=== PATIENT | female | born 1990 | race Caucasian/White ===

== ENCOUNTER 2021-05-31 19:36 | Emergency (ER) | payer OTHER, MEDICAID, SELFPAY ==
--- NOTE | ~2021-05-31 | XR_ITS ---
EXAMINATION: PORTABLE CHEST 1 VIEW CLINICAL INFORMATION: Upper respiratory symptoms.. COMPARISON: 10/17/2012. TECHNIQUE: Portable frontal view of the chest was obtained. FINDINGS: The lungs are well expanded. No focal infiltrate, effusion, edema, or pneumothorax. Cardiac and mediastinal silhouettes are within normal limits for technique. No acute bony abnormality seen. XR/XR chest 1V IMPRESSION: No evidence of acute disease.
[2021-05-31 20:51] VITALS: BP 140/85; PULSE 85; RESP 18; TEMP 36.4; O2SAT 100; BMI 35.6
--- NOTE | 2021-05-31 22:25 | ED.GENADULT ---
HPI - General Adult General Chief complaint: General Medical Stated complaint: flu like Time Seen by Provider: 05/31/21 22:25 Source: patient Mode of arrival: ambulatory Limitations: no limitations History of Present Illness HPI narrative: Patient's vaccinated COVID-19 1st dose on 05/13 complaining of nasal congestion dry cough sore throat for last 2 3 days patient does have history of asthma denies any shortness of breath had low-grade temperature at home no other family member sick Related Data Previous Rx's Medication Instructions Recorded amoxicillin 875 mg tablet 875 mg PO BID #20 tab 05/31/21 prednisone 20 mg tablet 40 mg PO DAILY #10 tab 05/31/21 Allergies Allergy/AdvReac Type Severity Reaction Status Date / Time No Known Allergies Allergy Verified 05/31/21 20:53 Review of Systems Review of Systems: Yes all other systems are reviewed and are negative PMFSH Past Medical History Medical History Asthma Social History Social History Advance Directives: No Patient : No Physical Exam Vital Signs: Vital Signs: Last Vital Signs Temp 97.6 F 05/31/21 20:51 Pulse 80 05/31/21 22:29 Resp 8 L 05/31/21 22:29 BP 153/81 H 05/31/21 22:29 Pulse Ox 100 05/31/21 22:29 Body Mass Index 35.6 Const: General: no acute distress and well developed Orientation/consciousness: patient oriented x3 HENMT: Head: Yes normocephalic General nose exam: Normal external nose present and Normal nares present Mouth: Normal oral and palatal mucosa present Throat: Yes posterior oropharynx normal Neck: Neck: Yes full ROM Resp: Effort & Inspection: normal respiratory effort Auscultation: clear to auscultation bilaterally Neuro: General: patient oriented x3 Medical Decision Making Lab Data Lab results reviewed: Yes I reviewed the patient's lab results. Labs: Lab Results 05/31/21 Range/Units 21:41 Coronavirus (PCR) NEGATIVE (Negative) Influenza Type A (PCR) NEGATIVE (Negative) Influenza Type B (PCR) NEGATIVE (Negative) RSV RNA Qual (PCR) NEGATIVE (Negative) Discharge Plan Discharge Clinical Impression: URI with cough and congestion Patient Disposition: Home, Self-Care Instructions: Upper Respiratory Infection (ED) Additional Instructions: Take medication as advised Follow with PCP Prescriptions: New prednisone 20 mg tablet 40 mg PO DAILY Qty: 10 RF: 0 amoxicillin 875 mg tablet 875 mg PO BID Qty: 20 RF: 0
[2021-05-31 22:29] VITALS: BP 153/81; PULSE 80; RESP 8; O2SAT 100
[2021-05-31 22:48] LABS: Influenza A PCR NEGATIVE (Negative); Influenza B PCR NEGATIVE (Negative); Resp Syncy Virus RNA Qual PCR NEGATIVE (Negative); SARS COV2 PCR INHOUSE NEGATIVE (Negative)
[2021-05-31] MEDS: predniSONE 20 MG TABLET 40 MG PO (23:32)
== END 2021-06-01 00:23 | disposition home or self-care (01) ==
PROVIDERS: Emergency Provider Internal Medicine
DX: J06.9 Acute upper respiratory infection, unspecified (principal); Z20.822 Contact with and (suspected) exposure to COVID-19; R05 Cough; R09.81 Nasal congestion
CPT/HCPCS: 0241U; 36415; 71045; 87651; 99283

== ENCOUNTER 2021-08-28 23:32 | Emergency (ER) | payer OTHER, MEDICAID, SELFPAY ==
[2021-08-28 23:47] VITALS: BP 112/68; PULSE 85; RESP 16; TEMP 36.8; O2SAT 97; BMI 35.6
--- NOTE | 2021-08-28 23:58 | ED_ITS ---
HPI - URI/Sore Throat General Chief Complaint: Upper Respiratory Symptoms Stated Complaint: Covid symptoms Time Seen by Provider: 08/28/21 23:33 Source: patient Mode of arrival: ambulatory Limitations: no limitations History of Present Illness HPI Narrative: Patient comes to emergency room complaining of coughing, couple episodes of diarrhea, runny nose, headache. Patient states that she has been using her albuterol pump more than usual and she is almost out. Patient denies fever or chills. Related Data Previous Rx's Medication Instructions Recorded amoxicillin 875 mg tablet 875 mg PO BID #20 tab 05/31/21 prednisone 20 mg tablet 40 mg PO DAILY #10 tab 05/31/21 albuterol sulfate 90 mcg/actuation 2 puff INHALATION Q4-6H PRN #8.5 g 08/29/21 aerosol inhaler prednisone 50 mg tablet 50 mg PO DAILY #4 tab 08/29/21 Allergies Allergy/AdvReac Type Severity Reaction Status Date / Time No Known Allergies Allergy Verified 05/31/21 20:53 Review of Systems Review of Systems: Constitutional : No Weight loss, No Fever, No Chills, No Night Sweats, No Fatigue, complaining of generalized malaise ENT/Mouth : No Hearing loss, No Ear Pain, complaining of Nasal Congestion, No Sinus Pain, No Hoarseness, No sore throat, complaining of Rhinorrhea, No Swallowing Difficulty Eyes: No Eye Pain, No Swelling, No Redness, No Foreign Body, No Discharge, No Vision Changes Cardiovascular : No Chest Pain, No SOB, No Dyspnea on Exertion, No Orthopnea, No Edema, No Palpitations Respiratory : Complaining of cough, wheezing, No Smoke Exposure, No Dyspnea Gastrointestinal : No Nausea, No Vomiting, No Diarrhea, No Constipation, No abdominal Pain, No Hematochezia, No Melena Genitourinary : no irregular bleeding, No Dysuria, No Urinary Frequency, No Hematuria, No Urinary Incontinence, No Urgency, No Flank Pain, No Urinary Flow Changes, No Hesitancy Musculoskeletal : No joint pain, No Myalgias, No Joint Swelling Skin : No Skin Lesions, No rash Neuro : No Weakness, No Numbness, No Paresthesias, No Loss of Consciousness, No Dizziness, No Headache Psych : No Anxiety/Panic, No Depression, No SI/HI/AH/VH, No Social Issues, Heme/Lymph: No Bruising, No Bleeding,No Lymphadenopathy Endocrine : No Polyuria, No Polydipsia, No Temperature Intolerance [facility] Past Medical History Medical History Asthma Social History Social History Patient Tobacco Use Status: Never used Tobacco Use of substances other than those prescribed or required for medical reasons: No Advance Directives: No Advance Directives Information Provided: No Patient : No Physical Exam Vital Signs: Vital Signs: Last Vital Signs Temp 98.3 F 08/28/21 23:47 Pulse 85 08/28/21 23:47 Resp 16 08/28/21 23:47 BP 112/68 08/28/21 23:47 Pulse Ox 97 08/28/21 23:47 BMI result Body Mass Index 35.6 Const: Other: Appearance: Alert. Oriented X3. No acute distress. Eyes: Pupils equal, round and reactive to light. ENT: Pharynx normal. Neck: Normal inspection. Neck supple. No lymph nodes noted. No crepitus CVS: Normal heart rate and rhythm. Pulses normal. Normal S1 and S2 Respiratory: No respiratory distress. Breath sounds normal. No Wheezing. No rales Abdomen: Soft and nontender. No rigidity. No distention. good BS x4 Skin: Skin warm and dry. Normal skin color. Normal skin turgor. Extremities: No lower extremity edema. No Lacerations. No Rash Neuro: Oriented X 3. No motor deficit. No sensory deficit. Moving all extermities. No slurred speech. Course Course Course Narrative: Patient tested negative for COVID-19. Patient likely having a viral syndrome MDM - URI/Sore Throat Lab Data Labs: Lab Results 08/28/21 Range/Units 23:56 COVID-19 ([facility]) Negative (Negative) COVID-19 Clin Com See Note Discharge Plan Discharge Clinical Impression: Upper respiratory infection, Acute viral syndrome Patient Disposition: Home, Self-Care Instructions: Upper Respiratory Infection (ED) Additional Instructions: Please follow-up with your primary care physician tomorrow. If you have any worsening or new symptoms, please return to the emergency room or call 911 Prescriptions: New prednisone 50 mg tablet 50 mg PO DAILY Qty: 4 RF: 0 albuterol sulfate 90 mcg/actuation HFA aerosol inhaler 2 puff inhalation Q4-6H PRN (Reason: shortness of breath or wheezing) Qty: 8.5 RF: 1 No Action prednisone 20 mg tablet 40 mg PO DAILY Qty: 10 RF: 0 amoxicillin 875 mg tablet 875 mg PO BID Qty: 20 RF: 0 Stand Alone Forms: Work/School Release
[2021-08-29] MEDS: predniSONE 20 MG TABLET 60 MG PO (00:07)
[2021-08-29 00:43] LABS: COVID-19 Test Negative (Negative)
== END 2021-08-29 00:56 | disposition home or self-care (01) ==
LOC: HO.ED 08-29 00:18
PROVIDERS: Emergency Medicine; Emergency Provider Emergency Medicine
DX: B34.9 Viral infection, unspecified (principal); J06.9 Acute upper respiratory infection, unspecified; J45.909 Unspecified asthma, uncomplicated; Z20.822 Contact with and (suspected) exposure to COVID-19
CPT/HCPCS: 36415; 87635; 99283; 99284

== ENCOUNTER 2021-10-08 08:36 | Emergency (ER) | payer OTHER, MEDICAID, SELFPAY ==
[2021-10-08 08:48] VITALS: BP 139/81; PULSE 115; RESP 19; TEMP 36.6; O2SAT 98; BMI 35.6
[2021-10-08 09:52] LABS: Strep A Nucleic Acid Negative (Negative)
[2021-10-08 09:56] LABS: COVID-19 Test Negative (Negative); IDNOW Serial# 9DD0AD1C
--- NOTE | 2021-10-08 11:12 | ED_ITS ---
HPI - URI/Sore Throat General Chief Complaint: Upper Respiratory Symptoms Stated Complaint: vomiting diarrhea sore throat Time Seen by Provider: 10/08/21 10:49 Source: patient Mode of arrival: ambulatory Limitations: no limitations History of Present Illness HPI Narrative: 30-year-old female presents to ED for sore throat, body aches, diarrhea, and chills. Patient states she was exposed to her nephew who was posi tive for COVID. Patient states she is vaccinated with 2 dose of Phizer. Patient denies any chest pain or shortness of breath. Patient denies any abdominal pain. Related Data Previous Rx's Medication Instructions Recorded amoxicillin 875 mg tablet 875 mg PO BID #20 tab 05/31/21 prednisone 20 mg tablet 40 mg PO DAILY #10 tab 05/31/21 albuterol sulfate 90 mcg/actuation 2 puff INHALATION Q4-6H PRN #8.5 g 08/29/21 aerosol inhaler prednisone 50 mg tablet 50 mg PO DAILY #4 tab 08/29/21 Allergies Allergy/AdvReac Type Severity Reaction Status Date / Time No Known Allergies Allergy Verified 09/24/21 11:31 ? albuterol pump Allergy Unknown Uncoded 09/24/21 11:31 ? Cats Allergy Unknown Uncoded 09/24/21 11:31 Review of Systems Review of Systems: Only symptoms are diarrhea, body aches, chills, sore throat, headache Yes all other systems are reviewed and are negative PMFSH Past Medical History Medical History Asthma Social History Social History (System 09/24/21 @ 11:31 by Vicki Olivares) Patient Tobacco Use Status: Never used Tobacco Advance Directives: No Advance Directives Information Provided: No Physical Exam Vital Signs: Vital Signs: Last Vital Signs Temp 98 F 10/08/21 08:48 Pulse 115 H 10/08/21 08:48 Resp 19 10/08/21 08:48 BP 139/81 10/08/21 08:48 Pulse Ox 98 10/08/21 08:48 BMI result Body Mass Index 35.6 Const: General: cooperative, healthy appearing, comfortable, no acute distress, well developed, alert, awake and Physically active Orientation/consciousness: patient oriented x3 HENMT: Head: Yes normal to inspection, Yes No palpable skull fracture present, Yes normocephalic and Yes atraumatic Ears: hearing grossly normal bilateral ly, external ears normal, TM's normal bilaterally, EAC's normal, mastoids normal and no periauricular adenopathy General nose exam: Normal external nose present and Normal nares present Face and sinus: Yes normal facial exam Eyes: General: appearance normal, both eyes and all related structures Neck: Neck: Yes normal visual inspection, Yes full ROM, Yes no lymphadenopathy, Yes no meningeal signs, Yes trachea midline, Yes supple, No an terior neck swelling and No tender Chest: Chest palpation & inspection: normal inspection of the chest and normal palpation of entire chest wall Resp: Effort & Inspection: normal respiratory effort and able to speak in complete sentences Auscultation: clear to auscultation bilaterally Cardio: Jugular venous distension: no JVD Heart sounds: S1 normal heart sound present and S2 normal heart sound present GI: Inspection: Yes normal to inspection and No abdominal wall ecchymosis Palpation (GI): Soft to palpation, not firm, nontender, no guarding and not rigid : General: No CVA tenderness and Yes no CVA tenderness Back/Spine/Pelvis: Back: no CVA tenderness, No CVA tenderness and No back tenderness Skin: General skin exam: no rashes or lesions noted and elasticity normal Neuro: General: patient oriented x3, gait normal, no meningeal signs and CN's II-XI intact bilaterally Cranial nerves: Yes CN's II-XII intact bilaterally Extrem: General: Yes normal to inspection, Yes full ROM and Yes capillary refill normal Psych: Appearance: grossly normal, well kempt and not disheveled Course Course Course Narrative: Patient tested for COVID Reevaluation(s) Reevaluation #1: COVID test negative. Patient informed this may be a false negative. patient educated on signs of respiratory distress Time: 11:21 MDM - URI/Sore Throat MDM Narrative Medical decision making narrative: Viral syndrome Lab Data Labs: Lab Results 10/08/21 10/08/21 Range/Units 09:26 09:26 COVID-19 ([facility]) Negative (Negative) COVID-19 Clin Com See Note S. pyogenes GrpA YON Negative (Negative) Discharge Plan Discharge Clinical Impression: Acute viral syndrome Patient Disposition: Home, Self-Care Instructions: Viral Syndrome (ED) Additional Instructions: Your COVID test came back negative. This may be false negative. Recommend retesting in 5 days. Return to the ED for any chest pain, shortness of breath, weakness, dizziness, or any other concerning symptoms. Prescriptions: No Action prednisone 20 mg tablet 40 mg PO DAILY Qty: 10 RF: 0 amoxicillin 875 mg tablet 875 mg PO BID Qty: 20 RF: 0 prednisone 50 mg tablet 50 mg PO DAILY Qty: 4 RF: 0 albuterol sulfate 90 mcg/actuation HFA aerosol inhaler 2 puff inhalation Q4-6H PRN (Reason: shortness of breath or wheezing) Qty: 8.5 RF: 1 Stand Alone Forms: Work/School Release Interventions: ED Discharge Assessment Last Done: 10/08/21 11:39 Discharge Date/Time: 10/08/21 11:40 Print Language: Turkish
== END 2021-10-08 11:40 | disposition home or self-care (01) ==
PROVIDERS: Emergency Provider Emergency Medicine; PCP Internal Medicine
DX: B34.9 Viral infection, unspecified (principal); Z20.822 Contact with and (suspected) exposure to COVID-19; J02.9 Acute pharyngitis, unspecified; J45.909 Unspecified asthma, uncomplicated; Z79.899 Other long term (current) drug therapy
CPT/HCPCS: 87635; 87651; 99283

== ENCOUNTER 2022-01-20 11:41 | Emergency (ER) | payer OTHER, MEDICAID, SELFPAY ==
--- NOTE | ~2022-01-20 | XR_ITS ---
EXAMINATION: XR CHEST CLINICAL INFORMATION: Chest pain COMPARISON: Previous chest x-ray most recent May 2021 TECHNIQUE: 2 views of the chest were obtained. FINDINGS: No significant abnormality is noted involving the heart, lungs, mediastinum, bony thorax or soft tissues. XR/XR chest 2V IMPRESSION: Unremarkable examination.
--- NOTE | 2022-01-20 11:44 | ECG_ITS ---
Test Reason : cp Blood Pressure : / mmHG Vent. Rate : 100 BPM Atrial Rate : 100 BPM P-R Int : 130 ms QRS Dur : 086 ms QT Int : 340 ms P-R-T Axes : 044 -11 015 degrees QTc Int : 438 ms Normal sinus rhythm Normal ECG No previous ECGs available Referred By: Generic ED Physician Electronically Signed By:IVÁN GRANDE
[2022-01-20 11:46] VITALS: BP 131/82; PULSE 94; RESP 16; TEMP 36.9; O2SAT 97; BMI 37.1
--- NOTE | 2022-01-20 12:25 | ED.CHESTPAIN ---
HPI - Chest Pain General Chief Complaint: Chest Pain Stated Complaint: chest pain x4days Time Seen by Provider: 01/20/22 11:56 Source: patient Mode of arrival: ambulatory Limitations: no limitations History of Present Illness HPI narrative: 31-year-old female presents emergency department complaining of chest pain. Patient states she has been having recurrent pains for the past 4 days she states associated with any foods or drinking. She denies any shortness of breath though she states she has been having some asthma but his fine right now. She states that when she takes a very deep breath sometimes being also feel epigastric pain. She denies as burning sensation she did take Tums without relief. She has not tried anything else she denies any history of acid reflux is any history of heart disease or at early age. MD complaint: chest pain Pertinent past history: asthma Related Data Previous Rx's Medication Instructions Recorded amoxicillin 875 mg tablet 875 mg PO BID #20 tab 05/31/21 prednisone 20 mg tablet 40 mg PO DAILY #10 tab 05/31/21 albuterol sulfate 90 mcg/actuation 2 puff INHALATION Q4-6H PRN #8.5 g 08/29/21 aerosol inhaler prednisone 50 mg tablet 50 mg PO DAILY #4 tab 08/29/21 famotidine 20 mg tablet (Pepcid) 20 mg PO BID PRN #60 tab 01/20/22 Allergies Allergy/AdvReac Type Severity Reaction Status Date / Time naproxen Allergy Hives Verified 01/20/22 11:46 ? Cats Allergy Unknown Hives Uncoded 01/20/22 11:45 Review of Systems Review of Systems: Review of systems: General: Patient denies any fever chills recent illness or falls Musculoskeletal: Denies back pain or body aches or other injuries HEENT: denies headache, runny nose, ear pain Respiratory: denies shortness of breath, cough Cardiovascular: no chest pain or palpitations : denies dysuria, frequency Abdomen: no nausea vomiting denies abdominal pain Extremities: no swelling, no pain Skin: no diaphoresis Yes all other systems are reviewed and are negative [facility] Past Medical History Medical History Asthma Social History Social History (System 09/24/21 @ 11:31 by Vicki Olivares) Alcohol intake: never Patient Tobacco Use Status: Never used Tobacco Use of substances other than those prescribed or required for medical reasons: No Advance Directives: No Advance Directives Information Provided: No Physical Exam Vital Signs: Vital Signs: Last Vital Signs Temp 97.9 F 01/20/22 13:25 Pulse 86 01/20/22 13:25 Resp 16 01/20/22 13:25 BP 131/70 01/20/22 13:25 Pulse Ox 99 01/20/22 13:25 BMI result Body Mass Index 37.1 General: Well-appearing well-nourished in no signs of distress HEENT: Normocephalic atraumatic Neck: No signs of JVD, no masses no tenderness or lymphadenopathy Cardiovascular: Regular rate and rhythm Respiratory: Clear to auscultation bilaterally Abdomen: Soft nontender no masses rectal exam performed guiac negative quality control technician confirmed. Extremities: Normal pedal pulses no signs of edema Skin: Dry warm no rashes Back: No tenderness full ROM MDM - Chest Pain MDM Narrative Medical decision making narrative: Patient with pain for 4 days sounds more like acid reflux than coronary does not sound like she has a pneumonia that could be a component of asthma making her even more anxious. She has no signs of difficulty breathing no other concerns I will give the patient Maalox Pepcid and get a cardiac workup including LFTs and lipase. 1400 x-ray and labs including LFTs and troponin are all negative patient well patient sleeping in the room I explained all the lab results send Pepcid to her pharmacy and have patient follow-up with the primary care doctor. Medical Records Data Attestation: I reviewed the patient's medical records. Lab Data Attestation: I reviewed the patient's lab results. Result diagrams: 01/20/22 12:54 01/20/22 12:54 Labs: Lab Results 01/20/22 01/20/22 01/20/22 Range/Units 12:54 12:54 12:54 WBC 10.0 (4.8-10.8) X10*3/uL RBC 4.28 (4.20-5.50) X10*6/uL Hgb 12.8 (12.0-16.0) g/dl Hct 39.7 (37.0-47.0) % MCV 92.8 (80.0-98.0) fL MCH 29.9 (27.0-33.0) pg MCHC 32.2 (31.0-35.0) g/dl RDW 12.3 (11.0-16.0) % Plt Count 340 (160-400) X10*3/uL MPV 9.4 (9.4-12.3) fL Immature Gran % (Auto) 0.4 (0.0-0.4) % Neut % (Auto) 56.2 (45-73) % Lymph % (Auto) 27.8 (20-40) % Hughes % (Auto) 7.6 (2-11) % Eos % (Auto) 7.3 H (0-4) % Baso % (Auto) 0.7 (0-2) % Lymph # (Auto) 2.8 (1.2-4.9) X10*3/uL Hughes # (Auto) 0.8 (0.1-1.2) X10*3/uL Eos # (Auto) 0.7 H (0.0-0.4) X10*3/uL Baso # (Auto) 0.1 (0.0-0.2) X10*3/uL Abs Immat Gran (auto) 0.04 H (0.00-0.03) X10*3/uL Absolute Neuts (auto) 5.6 (2.0-8.3) x10*3/uL Absolute Nucleated RBC 0.000 (0.0-0.012) X10*3/uL Nucleated RBC % (auto) 0.0 (0.0-0.2) /100WBC Sodium 139 (135-145) mmol/L Potassium 4.3 (3.3-5.1) mmol/L Chloride 106 (96-108) mmol/L Carbon Dioxide 28 (22-29) mmol/L Anion Gap 9 L (12-20) BUN 13 (9-16) mg/dL Creatinine 0.73 (0.5-1.4) mg/dL Estim Creat Clear Calc 136.3 Estimated GFR > 60 Random Glucose 93 (60-115) mg/dL Calcium 9.1 (8.4-10.2) mg/dL Total Bilirubin 0.3 (0.0-1.0) mg/dL Direct Bilirubin 0.2 (0.0-0.5) mg/dL AST 15 (5-31) U/L ALT 15 (0-31) U/L Alkaline Phosphatase 50 (39-117) U/L Troponin I High Sens < 3.5 (<3.5-17.0) ng/L Total Protein 6.9 (6.5-8.0) g/dL Albumin 3.7 (3.5-5.0) g/dL Lipase 41 (8-78) U/L Scores Heart Score History: -0- slightly suspicious ECG: -0- normal Age: -0- < or = 45 Risk factory: -0- no risk factors known Troponin: -0- < or = normal limit Score: 0 Risk: 1.7% Discharge Plan Discharge Clinical Impression: Chest pain Patient Disposition: Home, Self-Care Instructions: Chest Pain (DC) Additional Instructions: All your labs and please call from the doctor he can try Pepcid or Maalox for pain. Prescriptions: New famotidine [Pepcid] 20 mg tablet 20 mg PO BID PRN (Reason: acid reflux) Qty: 60 0RF No Action prednisone 20 mg tablet 40 mg PO DAILY Qty: 10 0RF amoxicillin 875 mg tablet 875 mg PO BID Qty: 20 0RF prednisone 50 mg tablet 50 mg PO DAILY Qty: 4 0RF albuterol sulfate 90 mcg/actuation HFA aerosol inhaler 2 puff inhalation Q4-6H PRN (Reason: shortness of breath or wheezing) Qty: 8.5 1RF Referrals: Po,Ash Morse MD [Physician] - (Please call to follow up and establish)
[2022-01-20 12:42] VITALS: PULSE 93
[2022-01-20] MEDS: Famotidine 20 MG TABLET PO (12:48)
[2022-01-20] MEDS: Magnesium Hydrox/Alum Hydrox 30 ML ORAL.SUSP PO (12:48)
[2022-01-20 12:59] LABS: MANUAL DIFF FLAG NO
[2022-01-20 13:05] LABS: Basophils Absolute Auto 0.1 X10*3/uL (0.0-0.2); Basophils Percent Auto 0.7 % (0-2); Eosinophils Absolute Auto 0.7 X10*3/uL (0.0-0.4); Eosinophils Percent Auto 7.3 % (0-4); Hematocrit 39.7 % (37.0-47.0); Hemoglobin 12.8 g/dl (12.0-16.0); Imm Gran Abs Auto 0.04 X10*3/uL (0.00-0.03); Imm Gran Pct Auto 0.4 % (0.0-0.4); Lymphocytes Absolute Auto 2.8 X10*3/uL (1.2-4.9); Lymphocytes Percent Auto 27.8 % (20-40); Mean Corpuscular HGB Conc 32.2 g/dl (31.0-35.0); Mean Corpuscular Hemoglobin 29.9 pg (27.0-33.0); Mean Corpuscular Volume 92.8 fL (80.0-98.0); Mean Platelet Volume 9.4 fL (9.4-12.3); Monocytes Absolute Auto 0.8 X10*3/uL (0.1-1.2); Monocytes Percent Auto 7.6 % (2-11); Neutrophils Absolute Auto 5.6 x10*3/uL (2.0-8.3); Neutrophils Percent Auto 56.2 % (45-73); Platelet Count 340 X10*3/uL (160-400); Red Blood Count 4.28 X10*6/uL (4.20-5.50); Red Cell Distribution Width 12.3 % (11.0-16.0)
[2022-01-20 13:23] LABS: Alanine Aminotransferase 15 U/L (0-31); Albumin Level 3.7 g/dL (3.5-5.0); Alkaline Phosphatase 50 U/L (39-117); Anion Gap 9 (12-20); Aspartate Amino Transferase 15 U/L (5-31); Bilirubin Direct 0.2 mg/dL (0.0-0.5); Bilirubin Total 0.3 mg/dL (0.0-1.0); Blood Urea Nitrogen 13 mg/dL (9-16); Calcium 9.1 mg/dL (8.4-10.2); Carbon Dioxide 28 mmol/L (22-29); Chloride 106 mmol/L (96-108); Creatinine Clr Calc Pharmacy 136.3; Estimated Glomerular Filt Rate > 60; Glucose Random 93 mg/dL (60-115); Lipase 41 U/L (8-78); Potassium 4.3 mmol/L (3.3-5.1); Sodium 139 mmol/L (135-145); Total Protein 6.9 g/dL (6.5-8.0)
[2022-01-20 13:25] VITALS: BP 131/70; PULSE 86; RESP 16; TEMP 36.6; O2SAT 99
[2022-01-20 13:26] LABS: Troponin-I High Sensitivity < 3.5 ng/L (<3.5-17.0)
[2022-01-20 14:05] VITALS: BP 129/84; PULSE 90; RESP 20; TEMP 36.6; O2SAT 99
== END 2022-01-20 14:15 | disposition home or self-care (01) ==
PROVIDERS: Emergency Provider Student in an Organized Health Care Education/Training Program
DX: R07.9 Chest pain, unspecified (principal); J45.909 Unspecified asthma, uncomplicated
CPT/HCPCS: 36415; 71046; 80048; 80076; 83690; 84484; 85025; 93005; 99283; 99284

== ENCOUNTER 2022-09-29 02:18 | Emergency (ER) | payer OTHER, MEDICAID, SELFPAY ==
--- NOTE | ~2022-09-29 | XR_ITS ---
EXAMINATION: XR CHEST CLINICAL INFORMATION: Shortness of breath COMPARISON: 01/20/2022 TECHNIQUE: 2 views of the chest were obtained. FINDINGS: No significant abnormality is noted involving the heart, lungs, mediastinum, bony thorax or soft tissues. XR/XR chest 2V IMPRESSION: Unremarkable examination.
[2022-09-29 02:49] VITALS: BP 140/86; PULSE 85; RESP 20; TEMP 36.7; O2SAT 98; BMI 37.4
[2022-09-29 03:39] LABS: Influenza A PCR NEGATIVE (Negative); Influenza B PCR NEGATIVE (Negative); Resp Syncy Virus RNA Qual PCR NEGATIVE (Negative); SARS COV2 PCR INHOUSE NEGATIVE (Negative)
[2022-09-29] MEDS: Albuterol Sulfate 2.5 MG, Albuterol Sulfate (0.083%) 2.5 MG 5 MG INHALE (03:44)
[2022-09-29] MEDS: Albuterol/Iprat 2.5/0.5MG 3 ML AMPUL.NEB INHALE (03:49)
--- NOTE | 2022-09-29 04:03 | ED.SOB ---
HPI - SOB/Dyspnea General Chief Complaint: Dyspnea Stated Complaint: respiratory issues Time Seen by Provider: 09/29/22 03:23 Source: patient Mode of arrival: ambulatory Limitations: no limitations History of Present Illness HPI Narrative: 31-year-old female came in for evaluation of shortness of breath and increased wheezing with worsening of her asthma, patient used her inhaler and nebulizer at home with no relief of her symptoms, declined any fever or chills. Patient has been coughing and complaining of left shoulder pain. Never been intubated or require ICU admission in the past. Related Data Previous Rx's Medication Instructions Recorded amoxicillin 875 mg tablet 875 mg PO BID #20 tabs 05/31/21 prednisone 20 mg tablet 40 mg PO DAILY #10 tabs 05/31/21 albuterol sulfate 90 mcg/actuation 2 puff inhalation Q4-6H PRN 08/29/21 aerosol inhaler shortness of breath or wheezing #8.5 grams prednisone 50 mg tablet 50 mg PO DAILY #4 tabs 08/29/21 famotidine 20 mg tablet (Pepcid) 20 mg PO BID PRN acid reflux #60 01/20/22 tabs albuterol sulfate 2.5 mg/3 mL 2.5 mg (3 mL) inhalation Q4-6H PRN 09/29/22 (0.083 %) solution for nebulization shortness of breath or wheezing #90 mL albuterol sulfate 90 mcg/actuation 1 inh inhalation QID PRN shortness 09/29/22 aerosol inhaler of breath or wheezing #8.5 grams prednisone 20 mg tablet 20 mg PO BID #10 tabs 09/29/22 Allergies Allergy/AdvReac Type Severity Reaction Status Date / Time naproxen Allergy Hives Verified 01/20/22 11:46 ? Cats Allergy Unknown Hives Uncoded 01/20/22 11:45 Review of Systems Review of Systems: All other systems are reviewed and are negative Constitutional: Reports as per HPI and Reports no additional constitutional complaints Eyes: Reports as per HPI and Reports no additional eye complaints Reports system reviewed and no additional complaints, except as documented Cardiovascular: Reports as per HPI and Reports no additional cardiovascular complaints Respiratory: Reports as per HPI and Reports no additional respiratory complaints Gastrointestinal: Reports as per HPI and Reports no additional gastrointestinal complaints Genitourinary: Reports no additional female genitourinary complaints Musculoskeletal: Reports no additional musculoskeletal complaints Skin/Breast: Reports system reviewed and no additional complaints, except as docu Psychiatric: Reports no additional psychiatric complaints Endocrine: Reports no additional endocrine complaints Hematologic/Lymphatic: Reports no additional hematologic/lymphatic complaints Allergic/Immunologic: Reports no additional allergic/immunologic complaints Reports system reviewed and no additional complaints, except as documented and Reports Abnormal speech present [facility] Past Medical History Medical History Asthma Social History Social History Alcohol intake: never Patient Tobacco Use Status: Never used Tobacco Advance Directives: No Physical Exam Vital Signs: Vital Signs: Last Vital Signs Temp 98.0 F 09/29/22 02:49 Pulse 92 09/29/22 04:42 Resp 20 09/29/22 04:42 BP 115/60 09/29/22 04:42 Pulse Ox 98 09/29/22 04:42 O2 Del Method 09/29/22 04:42 BMI result Body Mass Index 37.4 Vital signs have been reviewed as appeared to be correct. Blood pressure normal. Heart rate normal. Respiration rate normal. Temperature normal. Oxygen saturation normal. Appearance: Alert. Oriented X3. No acute distress. Head: Normal external exam. Normocephalic. Atraumatic. No Mohr signs noted. No raccoon eyes noted Eyes: PERRLA. EOMI. Conjunctiva and sclera normal. Eyelids normal. ENT: TM's Normal. Pharynx normal. Uvula midline. Moist mucous membranes. No trismus noted. No drooling noted. No muffled voice noted. Neck: Normal inspection. Neck supple. FROM. No adenopathy. Thyroid Normal. No meningeal signs. No neck mass noted. CVS: Normal heart rate and rhythm. Heart sound normal. No murmurs noted. Pulses normal throughout. Respiratory: No respiratory distress. Painless inspiration. Breath sounds normal. Diffuse expiratory wheezing with prolonged expiration.. Chest nontender. No accessory muscle usage noted or decreased air movement noted. Abdomen: Soft and nontender. Bowel sounds normal in all 4 quadrants. No distention noted. No organomegaly noted. No visible injury noted. Back: No CVA tenderness. Full range of motion noted. Skin: Skin warm and dry. Normal skin color. Normal skin turgor. No rashes/lesions/lacerations noted. Extremities: No lower extremity edema. Extremities exhibit normal range of motion. Extremities nontender. Neuro: Oriented X 3. Cranial nerve exam: II-XII are grossly intact No motor deficit. No sensory deficit. Reflexes normal. Course Course Course Narrative: 31-year-old female history of asthma came in for acute asthma exacerbation, patient was given prednisone p.o. in the emergency department patient feels better after getting bronchodilator. Will discharge the patient on prednisone and albuterol. Medications Administered Discontinued Medications Generic Name Dose Route Start Last Admin Trade Name Freq PRN Reason Stop Dose Admin Albuterol Sulfate 2.5 mg/ 5 mg 09/29/22 03:23 09/29/22 03:44 Albuterol Sulfate 2.5 mg INHALE 09/29/22 03:24 5 mg ONCE ONE Administration Albuterol/Ipratropium 3 ml 09/29/22 03:23 09/29/22 03:49 Albuterol/Iprat 2.5/0.5mg 3 Ml Ampul.Neb INHALE 09/29/22 03:24 3 ml ONCE ONE Administration Prednisone 40 mg 09/29/22 04:02 09/29/22 04:40 Prednisone 20 Mg Tablet PO 09/29/22 04:03 40 mg ONCE ONE Administration Medical Decision Making Differential Diagnosis Differential Diagnoses: The differential diagnosis associated with the presentation includes (Influenza a, COVID-19 infection, RSV, pneumonia, asthma exacerbation.) Lab Data MDM Lab Attestation statement: I reviewed the patient's lab results. Labs: Lab Results 09/29/22 Range/Units 02:56 Influenza Type A (PCR) NEGATIVE (Negative) Influenza Type B (PCR) NEGATIVE (Negative) RSV RNA Qual (PCR) NEGATIVE (Negative) SARS-CoV-2 RNA (RT-PCR) NEGATIVE (Negative) Independent Interpretation I performed an independent interpretation of an: Plain X-Ray (Unremarkable examination.) Radiology Impression Discussion of test interpretation with radiology: I have reviewed the radiologist's reading. Discharge Plan Discharge Clinical Impression: Asthma with exacerbation Patient Disposition: Home, Self-Care Instructions: Asthma (ED) Prescriptions: New prednisone 20 mg tablet 20 mg PO BID Qty: 10 0RF albuterol sulfate 2.5 mg /3 mL (0.083 %) solution for nebulization 2.5 mg inhalation Q4-6H PRN (Reason: shortness of breath or wheezing) Qty: 90 0RF albuterol sulfate 90 mcg/actuation HFA aerosol inhaler 1 inh inhalation QID PRN (Reason: shortness of breath or wheezing) Qty: 8.5 0RF No Action prednisone 20 mg tablet 40 mg PO DAILY Qty: 10 0RF amoxicillin 875 mg tablet 875 mg PO BID Qty: 20 0RF famotidine [Pepcid] 20 mg tablet 20 mg PO BID PRN (Reason: acid reflux) Qty: 60 0RF prednisone 50 mg tablet 50 mg PO DAILY Qty: 4 0RF albuterol sulfate 90 mcg/actuation HFA aerosol inhaler 2 puff inhalation Q4-6H PRN (Reason: shortness of breath or wheezing) Qty: 8.5 1RF Referrals: Physician,Unknown J [Primary Care Provider] - Stand Alone Forms: Work/School Release
[2022-09-29] MEDS: predniSONE 20 MG TABLET 40 MG PO (04:40)
[2022-09-29 04:42] VITALS: BP 115/60; PULSE 92; RESP 20; O2SAT 98
== END 2022-09-29 05:54 | disposition home or self-care (01) ==
PROVIDERS: Emergency Provider Emergency Medicine
DX: J45.901 Unspecified asthma with (acute) exacerbation (principal); Z20.828 Contact with and (suspected) exposure to other viral communicable diseases
CPT/HCPCS: 0241U; 71046; 99282; 99284

== ENCOUNTER 2023-03-23 14:40 | Inpatient (IN) | payer OTHER, MEDICAID, SELFPAY ==
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
--- NOTE | 2023-03-23 14:45 | ECG_ITS ---
Test Reason : ingestion of pills Blood Pressure : / mmHG Vent. Rate : 081 BPM Atrial Rate : 081 BPM P-R Int : 122 ms QRS Dur : 098 ms QT Int : 342 ms P-R-T Axes : -01 -12 009 degrees QTc Int : 397 ms Normal sinus rhythm Normal ECG When compared with ECG of 20-JAN-2022 11:42, No significant change was found Referred By: Joanna Prasad Electronically Signed By:Shailesh Edouard
[2023-03-23 14:46] VITALS: BP 156/104; PULSE 91; RESP 19; TEMP 36.6; O2SAT 98; BMI 32.3
[2023-03-23 14:54] VITALS: BP 153/86; PULSE 84; RESP 20; TEMP 36.7; O2SAT 98
[2023-03-23 15:23] LABS: MANUAL DIFF FLAG NO
[2023-03-23 15:26] LABS: Appearance Urine Clear; Basophils Absolute Auto 0.1 X10*3/uL (0.0-0.2); Basophils Percent Auto 0.7 % (0-2); Color Urine Yellow; Eosinophils Absolute Auto 0.2 X10*3/uL (0.0-0.4); Eosinophils Percent Auto 2.1 % (0-4); Glucose Urine UA Negative (Negative); Hematocrit 42.8 % (37.0-47.0); Hemoglobin 14.2 g/dl (12.0-16.0); Imm Gran Abs Auto 0.03 X10*3/uL (0.00-0.03); Imm Gran Pct Auto 0.4 % (0.0-0.4); Leukocyte Esterase Urine Negative (Negative); Lymphocytes Absolute Auto 2.7 X10*3/uL (1.2-4.9); Mean Corpuscular HGB Conc 33.2 g/dl (31.0-35.0); Mean Corpuscular Hemoglobin 30.5 pg (27.0-33.0); Mean Corpuscular Volume 91.8 fL (80.0-98.0); Mean Platelet Volume 9.4 fL (9.4-12.3); Monocytes Absolute Auto 0.5 X10*3/uL (0.1-1.2); Monocytes Percent Auto 5.6 % (2-11); Neutrophils Absolute Auto 5.2 x10*3/uL (2.0-8.3); Neutrophils Percent Auto 60.2 % (45-73); Nitrite Urine Negative (Negative); PH 5.5 (5.0-9.0); Platelet Count 324 X10*3/uL (160-400); Red Blood Count 4.66 X10*6/uL (4.20-5.50); Red Cell Distribution Width 12.8 % (11.0-16.0); Specific Gravity - Urine >= 1.030 (1.005-1.025); Urine Blood Negative (Negative); Urine Ketones Negative (Negative); Urine Protein Trace mg/dL (Neg-Trace); White Blood Count 8.6 X10*3/uL (4.8-10.8)
[2023-03-23 15:41] LABS: Amphetamine Screen Urine Not Detected (Not Detect); Barbiturates, Urine Not Detected (Not Detect); Benzodiazepines Screen Urine Not Detected (Not Detect); Cannabinoid Screen Urine Not Detected (Not Detect); Cocaine Screen Urine Not Detected (Not Detect); Fentanyl, urine Not Detected (Not Detect); Opiate Screen Urine Not Detected (Not Detect); Phencyclidine Screen Urine Not Detected (Not Detect)
[2023-03-23] MEDS: Activated charcoaL 50 GM/240 ML ORAL.SUSP PO (15:45)
[2023-03-23 15:51] LABS: Alanine Aminotransferase 22 U/L (0-31); Alkaline Phosphatase 47 U/L (39-117); Anion Gap 10 (12-20); Aspartate Amino Transferase 16 U/L (5-31); Bilirubin Total 0.6 mg/dL (0.0-1.0); Blood Urea Nitrogen 10 mg/dL (9-16); Calcium 9.6 mg/dL (8.4-10.2); Carbon Dioxide 23 mmol/L (22-29); Chloride 110 mmol/L (96-108); Creatinine Clr Calc Pharmacy 132.8; Estimated Glomerular Filt Rate > 60; Glucose Random 117 mg/dL (60-115); Potassium 3.9 mmol/L (3.3-5.1); Sodium 139 mmol/L (135-145); Total Protein 7.4 g/dL (6.5-8.0)
[2023-03-23 15:52] LABS: IDNOW Serial# 08D9AD1C
[2023-03-23 15:53] LABS: COVID-19 Test Negative (Negative)
[2023-03-23 15:57] LABS: HCG Quantitative < 2 mIU/mL
[2023-03-23 16:02] LABS: Acetaminophen LAB < 17 mcg/mL (<30); Salicylate < 5.0 mg/dL (15-30)
[2023-03-23] MEDS: ondansetron HCL 4 MG/2 ML VIAL IVPUSH (16:12)
[2023-03-23] MEDS: 0.9 % Sodium Chloride 1,000 ML 999 ML IVCONT (16:12)
--- NOTE | 2023-03-23 16:24 | PC.NURSE ---
poison control called per [place] at poison control- repeat tylenol level/labs and repeat ekg in 4 hours, if all is wnl pt can be cleared by 2029 to consult with psych.
--- NOTE | 2023-03-23 16:28 | PC.NURSE ---
pt alert and oriented, EKG showing NSR, VSS, pt c/O SI, 1:1 sitter @ bedside, IV inserted in right AC, NS running, zofran administer for nausea per provider order, charcoal drink provided to patient drinking small sips - encouraging pt to drink, provider aware, will continue to monitor.
[2023-03-23 16:49] LABS: Lipase 24 U/L (8-78)
[2023-03-23 17:40] VITALS: BP 107/52; PULSE 80; RESP 18; TEMP 37.2; O2SAT 99
[2023-03-23 17:55] VITALS: BP 142/66; PULSE 77; RESP 14; TEMP 37.1; O2SAT 98
--- NOTE | 2023-03-23 17:56 | PC.NURSE ---
pt's vitals reassessed, within normal limits besides slighty high systolic BP, pupils within normal limits, encouraged pt to drink charcoal, 1:1 sitter bedside, sitter states that when pt ambulated to bathroom she had an unsteady gait, will continue to monitor and encourage to ingest charcoal.
--- NOTE | 2023-03-23 18:55 | PC.NURSE ---
patient a&ox3, pt continues to be si, pt having repeat labs drawn per request of provider, ivf have completed, patient continues to be coached to drink the charcoal, pt continues to have 1:1 sitter, pupils perrla, skin pink/cool/dry,pts pulse wnl, mucous membranes moist, will continue to monitor.
[2023-03-23 19:09] LABS: Hematocrit 43.2 % (37.0-47.0); Hemoglobin 14.5 g/dl (12.0-16.0); Mean Corpuscular HGB Conc 33.6 g/dl (31.0-35.0); Mean Corpuscular Hemoglobin 30.9 pg (27.0-33.0); Mean Corpuscular Volume 91.9 fL (80.0-98.0); Mean Platelet Volume 9.3 fL (9.4-12.3); Platelet Count 334 X10*3/uL (160-400); Red Cell Distribution Width 12.6 % (11.0-16.0); White Blood Count 9.9 X10*3/uL (4.8-10.8)
--- NOTE | 2023-03-23 19:15 | MHC.EDTECH ---
EKG WAS DONE PRIOR TO MY ARRIVAL ANSWERING SERVICE AGENT EKG WAS NOT DOCUMENTED
[2023-03-23 19:33] LABS: Alanine Aminotransferase 23 U/L (0-31); Alkaline Phosphatase 49 U/L (39-117); Anion Gap 12 (12-20); Aspartate Amino Transferase 15 U/L (5-31); Bilirubin Total 0.5 mg/dL (0.0-1.0); Blood Urea Nitrogen 8 mg/dL (9-16); Calcium 9.3 mg/dL (8.4-10.2); Carbon Dioxide 23 mmol/L (22-29); Chloride 110 mmol/L (96-108); Creatinine Clr Calc Pharmacy 117.5; Estimated Glomerular Filt Rate > 60; Glucose Random 111 mg/dL (60-115); Magnesium 2.1 mg/dL (1.6-2.6); Potassium 4.4 mmol/L (3.3-5.1); Sodium 141 mmol/L (135-145); Total Protein 7.8 g/dL (6.5-8.0)
[2023-03-23 19:34] LABS: Acetaminophen LAB < 17 mcg/mL (<30)
--- NOTE | 2023-03-23 20:41 | PC.NURSE ---
This RN contacting Poison Control @ [facility] request. Per Poison Control, pt is medically cleared. Per MD Maurer, pt is medically cleared and able to return to the pod. [facility] contacted for report, plan to transfer into the pod.
[2023-03-23 23:18] LABS: Prothrombin Time 11.3 SEC (10.0-13.1)
[2023-03-23 23:25] LABS: Ethanol < 10 mg/dL
[2023-03-24 06:17] VITALS: BP 123/69; PULSE 56; RESP 17; TEMP 36.8; O2SAT 98
--- NOTE | 2023-03-24 06:59 | PC.NURSE ---
Patient slept through the night, no distress observed/reported, care consult ordered/pending evaluation, behavior not concerning at this time, patient is currently not on any medication, VSS, labs completed/resulted, will continue to monitor.
[2023-03-24 11:09] VITALS: BP 133/84; PULSE 79; RESP 19; TEMP 36.7; O2SAT 99
--- NOTE | 2023-03-24 14:25 | PC.NURSE ---
Patient calm and cooperative with staff this shift, patient has been resting on bed majority of shift today, getting up to use bathroom independently. Patient had a visitor today that seemed to uplift her.
[2023-03-24 15:30] VITALS: BP 121/79; PULSE 100; RESP 18; TEMP 36.6; O2SAT 98
[2023-03-24] MEDS: hydrOXYzine HCL 25 MG TABLET PO (16:02)
[2023-03-24 16:28] VITALS: BMI 34.4
--- NOTE | 2023-03-24 20:06 | PC.ADMIT ---
Basilio was admitted to [facility] at 1515 from [facility] emergency department on a conditional voluntary for treatment of Unspecified Depressive Disorder.?Precipitant of admission include after she presented to the ER and reporting she attempted suicide via overdose, taking an unknown amount of cyclobenzaprine and acetaminophen. She appears calm and pleasant, reports endorsing depression and anxiety, when asked if she had any thoughts of wanting to hurt self stated No, verbalized to look for staff if thoughts occur. Some irritability when informed about the visitor policy. Basilio is on standard unit checks.
[2023-03-24 20:20] VITALS: BP 102/58; PULSE 66; RESP 18; TEMP 36.6; O2SAT 97
[2023-03-24] MEDS: traZODone HCL 50 MG TABLET PO ×2 (21:22→23:29)
[2023-03-24] MEDS: Acetaminophen 325 MG TABLET 650 MG PO (21:22)
[2023-03-25 09:10] VITALS: BP 134/81; PULSE 84; RESP 18; TEMP 36.5; O2SAT 99
[2023-03-25 09:11] LABS: Estimated Average Glucose 88 mg/dL; Hemoglobin A1c % 4.7 %
[2023-03-25 09:51] LABS: Alanine Aminotransferase 28 U/L (0-31); Albumin Level 3.6 g/dL (3.5-5.0); Alkaline Phosphatase 45 U/L (39-117); Anion Gap 12 (12-20); Aspartate Amino Transferase 18 U/L (5-31); Bilirubin Total 0.5 mg/dL (0.0-1.0); Blood Urea Nitrogen 14 mg/dL (9-16); Calcium 9.1 mg/dL (8.4-10.2); Carbon Dioxide 28 mmol/L (22-29); Chloride 105 mmol/L (96-108); Cholesterol 127 mg/dL; Creatinine Clr Calc Pharmacy 121.4; Estimated Glomerular Filt Rate > 60; Glucose Fasting 79 mg/dL (60-99); HDL Cholesterol 44 mg/dL; LDL Cholesterol Calculated 61 mg/dl; Potassium 3.9 mmol/L (3.3-5.1); Sodium 141 mmol/L (135-145); Total Protein 6.9 g/dL (6.5-8.0); Triglycerides 114 mg/dL
[2023-03-25 09:57] LABS: Free T4 (Free Thyroxine) 1.07 ng/dL (0.71-1.85); Thyroid Stimulating Hormone 1.26 uIU/mL (0.32-4.0)
[2023-03-25 10:08] LABS: Folate 10.5 ng/mL (> or = 4.0); Vitamin B12 400 pg/mL (200-900)
[2023-03-25 11:30] VITALS: BMI 34.7
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
[2023-03-25 19:16] VITALS: BP 140/91; PULSE 108; RESP 18; TEMP 36.1; O2SAT 98
[2023-03-25 20:30] VITALS: BP 127/76; PULSE 112; RESP 18; TEMP 36.6; O2SAT 98
[2023-03-25] MEDS: carBAMazepine ER 100 MG TAB.ER.12H PO (21:10)
[2023-03-25] MEDS: traZODone HCL 100 MG TABLET PO (22:25)
[2023-03-26 08:20] VITALS: BP 117/59; PULSE 54; RESP 16; O2SAT 99
[2023-03-26] MEDS: carBAMazepine ER 100 MG TAB.ER.12H PO (09:04)
[2023-03-26] MEDS: Albuterol Sulfate 90 MCG 8 GM INHALER 2 PUFF INHALE (15:04)
--- NOTE | 2023-03-26 16:30 | HO.PSYCHPN ---
Subjective Subjective Date of Service: 03/26/23 Reason For Visit: Suicide Attempt Interim History: Met with patient; discussed with team Patient friendly and cooperative on approach. She reports she is doing better. No SI at all. Patient is future oriented talking about getting back to work. Agrees to increase Tegretol which was started on admission. Also agrees to increase trazodone and try clonidine at bedtime since she has trouble sleeping. Discussed history and how she has been stable for the past several years without any medication and it was only when life got overwhelming that she got dysregulated Mental Status Exam Mental Status Exam Narrative: Pt is alert and oriented; behavior is cooperative, friendly and calm; patient is not in distress; dressed in casual attire with adequate hygiene; mood is described as good and affect congruent; eye contact appropriate; Speech is normal rate, volume and prosody and not pressured; some psychomotor agitation today but seems to have resolved; thought process is organized and goal directed; Thought content is on tx and aftercare plans; otherwise pertinent to relevant topics and without any delusional content, paranoid ideations or grandiosity; denies any SI/HI. There is no evidence of perceptual disturbance. Patients insight and judgment appear intact. Diagnostics Vital Signs (24Hr): Vital Signs - 24 hr 03/25/23 19:16 03/25/23 20:30 03/26/23 08:20 Temperature 97.0 F 97.9 F Pulse Rate 108 H 112 H 54 Respiratory Rate 18 18 16 Blood Pressure 140/91 H 127/76 117/59 L Pulse Oximetry 98 98 99 Oxygen Delivery Method Room Air Room Air Room Air BMI result Body Mass Index 34.7 Labs 03/23/23 19:04 03/25/23 08:30 Labs: Laboratory Results - last 48 hr 03/25/23 03/25/23 03/25/23 08:30 08:30 08:30 Sodium 141 Potassium 3.9 Chloride 105 Carbon Dioxide 28 Anion Gap 12 BUN 14 Creatinine 0.78 Estim Creat Clear Calc 121.4 Estimated GFR > 60 Fasting Glucose 79 Estimat Average Glucose 88 Hemoglobin A1c % 4.7 Calcium 9.1 Total Bilirubin 0.5 AST 18 ALT 28 Alkaline Phosphatase 45 Total Protein 6.9 Albumin 3.6 Triglycerides 114 Cholesterol 127 LDL Cholesterol, Calc 61 HDL Cholesterol 44 Vitamin B12 400 Folate 10.5 TSH 1.26 Free T4 1.07 Medications Medications Current Medications Acetaminophen (Acetaminophen 325 Mg Tablet) 650 mg PO Q6H PRN PRN Reason: Headache/Pain Mild Scale (1-3) Last Admin: 03/24/23 21:22 Dose: 650 mg Al Hydroxide/Mg Hydroxide (Magnesium Hydrox/Alum Hydrox 30 Ml Oral.Susp) 30 ml PO Q6H PRN PRN Reason: Heartburn/Nausea Albuterol Sulfate (Albuterol Sulfate 90 Mcg 8 Gm Inhaler) 2 puff INHALE Q4H PRN PRN Reason: shortness of breath or wheezing Last Admin: 03/26/23 15:04 Dose: 2 puff Carbamazepine (Carbamazepine Er 200 Mg Tab.Er.12h) 200 mg PO BID KAMRON Clonidine HCl (Clonidine Hcl 0.1 Mg Tablet) 0.1 mg PO BEDTIME KAMRON; Protocol Clonidine HCl (Clonidine Hcl 0.1 Mg Tablet) 0.1 mg PO Q4H PRN; Protocol PRN Reason: anxiety Hydroxyzine HCl (Hydroxyzine Hcl 25 Mg Tablet) 25 mg PO Q6H PRN PRN Reason: Anxiety Last Admin: 03/24/23 16:02 Dose: 25 mg Magnesium Hydroxide (Milk Of Magnesia 30 Ml Oral.Susp) 30 ml PO DAILY PRN PRN Reason: Constipation Nicotine Polacrilex (Nicotine Polacrilex 2 Mg Gum) 4 mg BUCCAL Q2H PRN PRN Reason: Nicotine Cravings Trazodone HCl (Trazodone Hcl 50 Mg Tablet) 50 mg PO BEDTIME MRX1 PRN PRN Reason: Insomnia Last Admin: 03/24/23 23:29 Dose: 50 mg Allergies Allergies Allergy/AdvReac Type Severity Reaction Status Date / Time naproxen Allergy Hives Verified 03/23/23 14:46 ? Cats Allergy Unknown Hives Uncoded 03/23/23 14:46 Assessment & Plan Assessment & Plan (1) Major depressive disorder: Status: Acute Code(s): F32.9 - Major depressive disorder, single episode, unspecified (2) Anxiety disorder: Status: Acute Code(s): F41.9 - Anxiety disorder, unspecified Plan R/O PTSD R/O Bipolar II Disorder [facility] has no records prior to 3 years ago, previous regimen unable to be ascertained today. start mood stabilizer per pt request, as she states she has done well on them in the past, reporting Bipolar II Dx. trazodone 100 for sleep. 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 wellbutrin? TCA? refer for outpt services Hospital course 03/26 patient reports she is doing much better, feeling more optimistic and SI remains fully resolved. Patient is hoping to discharge early next week. If patient remains stable over the weekend will very likely proceed with discharge Plan: CV Q 15 minute checks Increase Tegretol ER to 200 mg b.i.d. (recently started on 100 mg b.i.d.) Will order labs Increase trazodone to 150 mg q.h.s. p.r.n. for insomnia Start clonidine 0.1 mg q.h.s. for insomnia Adding clonidine 0.1 mg as a p.r.n. for anxiety Patient educated on: diagnosis, medication risk/benefits and therapeutic strategies Informed Consent: understands Reason for continued inpatient stay Substantial Risk for: rapid decompensation Time Spent With Patient Time: Total time managing care of this patient today ____ minutes.
[2023-03-26 20:30] VITALS: BP 127/81; PULSE 102; RESP 16; TEMP 36.6; O2SAT 97
[2023-03-26] MEDS: cloNIDine HCL 0.1 MG TABLET PO (20:33)
[2023-03-26] MEDS: carBAMazepine ER 200 MG TAB.ER.12H PO (20:33)
[2023-03-26] MEDS: traZODone HCL 50 MG TABLET 150 MG PO (22:49)
[2023-03-27 09:11] VITALS: BP 125/67; PULSE 78; RESP 18; TEMP 36.6; O2SAT 100
[2023-03-27] MEDS: carBAMazepine ER 200 MG TAB.ER.12H PO ×2 (09:12→20:19)
[2023-03-27] MEDS: cloNIDine HCL 0.1 MG TABLET PO ×2 (09:48→20:19)
--- NOTE | 2023-03-27 14:39 | HO.PSYCHPN ---
Subjective Subjective Date of Service: 03/27/23 Reason For Visit: Suicide Attempt Subjective Notes: 3 Day ( expires 03/31/2023) Medical Problems Affecting Mental Status: No Interim History: met with patient. Discussed with Nursing. Chart reviewed. Three-day notice which expires 03/31/2023. As per nursing some irritability and isolation. Adherent with medications. Sleep cycle is disturbed in the context of patient working overnight shifts. He patient reports overall feeling that things have significantly improved with current treatment plan. Reports her mind is not racing anywhere near as much. More stable mood morfin. Reports wanting to return to work and living with her mom. 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 No overt medication concerns or side effects. Sleep energy and appetite okay. No psychosis. Medication Compliance: Yes Side effects from medications: No Attending Groups: Yes Review of Systems Acute medical concerns: No Review of Systems Review of Systems Unremarkable Mental Status Exam Mental Status Exam Narrative: Pt is alert and oriented; behavior is cooperative, friendly and calm; patient is not in distress; dressed in casual attire with adequate hygiene; mood is described as good and affect congruent; eye contact appropriate; Speech is normal rate, volume and prosody and not pressured; common without psychomotor agitation; thought process is organized and goal directed; Thought content is on tx and aftercare plans; otherwise pertinent to relevant topics and without any delusional content, paranoid ideations or grandiosity; denies any SI/HI. There is no evidence of perceptual disturbance. Patients insight and judgment appear intact. Diagnostics Vital Signs (24Hr): Vital Signs - 24 hr 03/26/23 20:30 03/27/23 09:11 Temperature 98 F 97.8 F Pulse Rate 102 H 78 Respiratory Rate 16 18 Blood Pressure 127/81 125/67 Pulse Oximetry 97 100 Oxygen Delivery Method Room Air Room Air BMI result Body Mass Index 34.7 Labs 03/23/23 19:04 03/25/23 08:30 Medications Medications Current Medications Acetaminophen (Acetaminophen 325 Mg Tablet) 650 mg PO Q6H PRN PRN Reason: Headache/Pain Mild Scale (1-3) Last Admin: 03/24/23 21:22 Dose: 650 mg Al Hydroxide/Mg Hydroxide (Magnesium Hydrox/Alum Hydrox 30 Ml Oral.Susp) 30 ml PO Q6H PRN PRN Reason: Heartburn/Nausea Albuterol Sulfate (Albuterol Sulfate 90 Mcg 8 Gm Inhaler) 2 puff INHALE Q4H PRN PRN Reason: shortness of breath or wheezing Last Admin: 03/26/23 15:04 Dose: 2 puff Carbamazepine (Carbamazepine Er 200 Mg Tab.Er.12h) 200 mg PO BID KAMRON Last Admin: 03/27/23 09:12 Dose: 200 mg Clonidine HCl (Clonidine Hcl 0.1 Mg Tablet) 0.1 mg PO BEDTIME KAMRON; Protocol Last Admin: 03/26/23 20:33 Dose: 0.1 mg Clonidine HCl (Clonidine Hcl 0.1 Mg Tablet) 0.1 mg PO Q4H PRN; Protocol PRN Reason: anxiety Last Admin: 03/27/23 09:48 Dose: 0.1 mg Hydroxyzine HCl (Hydroxyzine Hcl 25 Mg Tablet) 25 mg PO Q6H PRN PRN Reason: Anxiety Last Admin: 03/24/23 16:02 Dose: 25 mg Magnesium Hydroxide (Milk Of Magnesia 30 Ml Oral.Susp) 30 ml PO DAILY PRN PRN Reason: Constipation Nicotine Polacrilex (Nicotine Polacrilex 2 Mg Gum) 4 mg BUCCAL Q2H PRN PRN Reason: Nicotine Cravings Trazodone HCl (Trazodone Hcl 50 Mg Tablet) 50 mg PO BEDTIME MRX1 PRN PRN Reason: Insomnia Last Admin: 03/24/23 23:29 Dose: 50 mg Trazodone HCl (Trazodone Hcl 50 Mg Tablet) 150 mg PO BEDTIME KAMRON Last Admin: 03/26/23 22:49 Dose: 150 mg Allergies Allergies Allergy/AdvReac Type Severity Reaction Status Date / Time naproxen Allergy Hives Verified 03/23/23 14:46 ? Cats Allergy Unknown Hives Uncoded 03/23/23 14:46 Assessment & Plan Assessment & Plan (1) Major depressive disorder: Status: Acute Code(s): F32.9 - Major depressive disorder, single episode, unspecified (2) Anxiety disorder: Status: Acute Code(s): F41.9 - Anxiety disorder, unspecified Plan R/O PTSD R/O Bipolar II Disorder [facility] has no records prior to 3 years ago, previous regimen unable to be ascertained today. start mood stabilizer per pt request, as she states she has done well on them in the past, reporting Bipolar II Dx. trazodone 100 for sleep. T/C adding anti-depressant, although pt reports long h/o anti-depressant trials she feels did not basket turner well. wellbutrin? TCA? refer for outpt services Hospital course 03/26 patient reports she is doing much better, feeling more optimistic and SI remains fully resolved. Patient is hoping to discharge early next week. If patient remains stable over the weekend will very likely proceed with discharge Plan: CV Q 15 minute checks Increase Tegretol ER to 200 mg b.i.d. (recently started on 100 mg b.i.d.) Will order labs Increase trazodone to 150 mg q.h.s. p.r.n. for insomnia Start clonidine 0.1 mg q.h.s. for insomnia Adding clonidine 0.1 mg as a p.r.n. for anxiety 03/27/2023: No changes to current treatment plan Reason for continued inpatient stay Substantial Risk for: rapid decompensation Time Spent With Patient Time: Total time managing care of this patient today ____ minutes.
[2023-03-27] MEDS: Albuterol Sulfate 90 MCG 8 GM INHALER 2 PUFF INHALE (18:27)
[2023-03-27 20:15] VITALS: BP 151/80; PULSE 97; RESP 18; TEMP 36.6; O2SAT 99
[2023-03-27] MEDS: Acetaminophen 325 MG TABLET 650 MG PO (23:42)
[2023-03-27] MEDS: traZODone HCL 50 MG TABLET 150 MG PO (23:43)
[2023-03-28 09:03] VITALS: BP 118/65; PULSE 80; RESP 16; TEMP 36.8; O2SAT 98
[2023-03-28] MEDS: cloNIDine HCL 0.1 MG TABLET PO ×2 (09:05→22:44)
[2023-03-28] MEDS: carBAMazepine ER 200 MG TAB.ER.12H PO ×2 (09:05→22:44)
--- NOTE | 2023-03-28 13:52 | HO.PSYCHPN ---
Subjective Subjective Date of Service: 03/28/23 Reason For Visit: Suicide Attempt Subjective Notes: 3 Day Medical Problems Affecting Mental Status: No Interim History: met with patient. Discussed with Nursing. Three-day notice which expires 03/31/2023. Less irritable. Adherent with medications. She is feeling that things have significantly improved with current treatment plan. Reports her mind is not racing anywhere near as much. More stable mood morfin. Reports wanting to return to work and living with her mom. No overt medication concerns or side effects I need my meds . Sleep energy and appetite okay. No psychosis. Medication Compliance: Yes Side effects from medications: No Attending Groups: Yes Review of Systems Acute medical concerns: No Review of Systems Review of Systems Unremarkable Mental Status Exam Mental Status Exam Narrative: Pt is alert and oriented; behavior is cooperative, friendly and calm; patient is not in distress; dressed in casual attire with adequate hygiene; mood is described as good and affect congruent; eye contact appropriate; Speech is normal rate, volume and prosody and not pressured; common without psychomotor agitation; thought process is organized and goal directed; Thought content is on tx and aftercare plans; otherwise pertinent to relevant topics and without any delusional content, paranoid ideations or grandiosity; denies any SI/HI. There is no evidence of perceptual disturbance. Patients insight and judgment appear intact. Diagnostics Vital Signs (24Hr): Vital Signs - 24 hr 03/27/23 20:15 03/28/23 09:03 Temperature 97.9 F 98.2 F Pulse Rate 97 80 Respiratory Rate 18 16 Blood Pressure 151/80 H 118/65 Pulse Oximetry 99 98 Oxygen Delivery Method Room Air Room Air BMI result Body Mass Index 34.7 Labs 03/23/23 19:04 03/25/23 08:30 Medications Medications Current Medications Acetaminophen (Acetaminophen 325 Mg Tablet) 650 mg PO Q6H PRN PRN Reason: Headache/Pain Mild Scale (1-3) Last Admin: 03/27/23 23:42 Dose: 650 mg Al Hydroxide/Mg Hydroxide (Magnesium Hydrox/Alum Hydrox 30 Ml Oral.Susp) 30 ml PO Q6H PRN PRN Reason: Heartburn/Nausea Albuterol Sulfate (Albuterol Sulfate 90 Mcg 8 Gm Inhaler) 2 puff INHALE Q4H PRN PRN Reason: shortness of breath or wheezing Last Admin: 03/27/23 18:27 Dose: 2 puff Carbamazepine (Carbamazepine Er 200 Mg Tab.Er.12h) 200 mg PO BID KAMRON Last Admin: 03/28/23 09:05 Dose: 200 mg Clonidine HCl (Clonidine Hcl 0.1 Mg Tablet) 0.1 mg PO BEDTIME KAMRON; Protocol Last Admin: 03/27/23 20:19 Dose: 0.1 mg Clonidine HCl (Clonidine Hcl 0.1 Mg Tablet) 0.1 mg PO Q4H PRN; Protocol PRN Reason: anxiety Last Admin: 03/28/23 09:05 Dose: 0.1 mg Hydroxyzine HCl (Hydroxyzine Hcl 25 Mg Tablet) 25 mg PO Q6H PRN PRN Reason: Anxiety Last Admin: 03/24/23 16:02 Dose: 25 mg Magnesium Hydroxide (Milk Of Magnesia 30 Ml Oral.Susp) 30 ml PO DAILY PRN PRN Reason: Constipation Nicotine Polacrilex (Nicotine Polacrilex 2 Mg Gum) 4 mg BUCCAL Q2H PRN PRN Reason: Nicotine Cravings Trazodone HCl (Trazodone Hcl 50 Mg Tablet) 50 mg PO BEDTIME MRX1 PRN PRN Reason: Insomnia Last Admin: 03/24/23 23:29 Dose: 50 mg Trazodone HCl (Trazodone Hcl 50 Mg Tablet) 150 mg PO BEDTIME KAMRON Last Admin: 03/27/23 23:43 Dose: 150 mg Allergies Allergies Allergy/AdvReac Type Severity Reaction Status Date / Time naproxen Allergy Hives Verified 03/23/23 14:46 ? Cats Allergy Unknown Hives Uncoded 03/23/23 14:46 Assessment & Plan Assessment & Plan (1) Major depressive disorder: Status: Acute Code(s): F32.9 - Major depressive disorder, single episode, unspecified (2) Anxiety disorder: Status: Acute Code(s): F41.9 - Anxiety disorder, unspecified Plan R/O PTSD R/O Bipolar II Disorder [facility] has no records prior to 3 years ago, previous regimen unable to be ascertained today. start mood stabilizer per pt request, as she states she has done well on them in the past, reporting Bipolar II Dx. trazodone 100 for sleep. T/C adding anti-depressant, although pt reports long h/o anti-depressant trials she feels did not tube turner well. wellbutrin? TCA? refer for outpt services Hospital course 03/26 patient reports she is doing much better, feeling more optimistic and SI remains fully resolved. Patient is hoping to discharge early next week. If patient remains stable over the weekend will very likely proceed with discharge Plan: CV Q 15 minute checks Increase Tegretol ER to 200 mg b.i.d. (recently started on 100 mg b.i.d.) Will order labs Increase trazodone to 150 mg q.h.s. p.r.n. for insomnia Start clonidine 0.1 mg q.h.s. for insomnia Adding clonidine 0.1 mg as a p.r.n. for anxiety 03/28/2023: No changes to current treatment plan Reason for continued inpatient stay Substantial Risk for: inability to function Time Spent With Patient Time: Total time managing care of this patient today ____ minutes.
[2023-03-28 22:40] VITALS: BP 122/84; PULSE 112; RESP 18; O2SAT 100
[2023-03-28] MEDS: traZODone HCL 50 MG TABLET 150 MG PO (23:12)
[2023-03-28] MEDS: Albuterol Sulfate 90 MCG 8 GM INHALER 2 PUFF INHALE (23:12)
[2023-03-29 08:22] VITALS: BP 128/74; PULSE 78; RESP 18; TEMP 36.6; O2SAT 99
--- NOTE | 2023-03-29 09:04 | P.DS_ITS ---
DS: Providers Provider Date of Service: 03/29/23 Date of admission: 03/24/23 15:03 Date of discharge: 03/29/23 Primary care physician: Unknown Physician Attending physician on admission: Clem Valerio Attending physician on discharge: Chet Ramon DS: Diagnosis Discharge Diagnosis (1) Major depressive disorder: Status: Acute (2) Anxiety disorder: Status: Acute DS: Medications Discharge Medications Home Medications: Previous Rx's Medication Instructions Recorded albuterol sulfate 90 mcg/actuation 2 puff inhalation Q4-6H PRN 08/29/21 aerosol inhaler shortness of breath or wheezing #8.5 grams Mental Status Exam Mental Status Exam Narrative: Pt is alert and oriented; behavior is cooperative, friendly and calm; patient is not in distress; dressed in casual attire with adequate hygiene; mood is described as good and affect congruent; eye contact appropriate; Speech is normal rate, volume and prosody and not pressured; no psychomotor agitation; thought process is organized and goal directed; Thought content is on tx and aftercare plans; otherwise pertinent to relevant topics and without any delusional content, paranoid ideations or grandiosity; denies any SI/HI. There is no evidence of perceptual disturbance. Patients insight and judgment appear intact. Data Data Completed and Pending Completed studies during hospitalization [Text1]: 03/23/23 03/23/23 03/23/23 15:16 15:16 15:16 WBC 8.6 RBC 4.66 Hgb 14.2 Hct 42.8 MCV 91.8 MCH 30.5 MCHC 33.2 RDW 12.8 Plt Count 324 MPV 9.4 Immature Gran % (Auto) 0.4 Neut % (Auto) 60.2 Lymph % (Auto) 31.0 [place] % (Auto) 5.6 Eos % (Auto) 2.1 Baso % (Auto) 0.7 Lymph # (Auto) 2.7 [place] # (Auto) 0.5 Eos # (Auto) 0.2 Baso # (Auto) 0.1 Abs Immat Gran (auto) 0.03 Absolute Neuts (auto) 5.2 Absolute Nucleated RBC 0.000 Nucleated RBC % (auto) 0.0 PT INR Sodium 139 Potassium 3.9 Chloride 110 H Carbon Dioxide 23 Anion Gap 10 L BUN 10 Creatinine 0.69 Estim Creat Clear Calc 132.8 Estimated GFR > 60 Random Glucose 117 H Fasting Glucose Estimat Average Glucose Hemoglobin A1c % Calcium 9.6 Magnesium Total Bilirubin 0.6 AST 16 ALT 22 Alkaline Phosphatase 47 Total Protein 7.4 Albumin 4.0 Triglycerides Cholesterol LDL Cholesterol, Calc HDL Cholesterol Lipase 24 Vitamin B12 Folate TSH Free T4 Beta HCG, Quant Urine Color Urine Appearance Urine pH Ur Specific [place] Urine Protein Urine Glucose (UA) Urine Ketones Urine Blood Urine Nitrite Ur Leukocyte Esterase Salicylates < 5.0 L Urine Opiates Screen Urine Fentanyl Screen Acetaminophen < 17 Ur Barbiturates Screen Ur Phencyclidine Scrn Ur Amphetamines Screen U Benzodiazepines Scrn Urine Cocaine Screen U Marijuana (THC) Screen Ethyl Alcohol COVID-19 (THAO) COVID-19 [employer] 03/23/23 03/23/23 03/23/23 15:16 15:16 15:16 WBC RBC Hgb Hct MCV MCH MCHC RDW Plt Count MPV Immature Gran % (Auto) Neut % (Auto) Lymph % (Auto) [place] % (Auto) Eos % (Auto) Baso % (Auto) Lymph # (Auto) [place] # (Auto) Eos # (Auto) Baso # (Auto) Abs Immat Gran (auto) Absolute Neuts (auto) Absolute Nucleated RBC Nucleated RBC % (auto) PT INR Sodium Potassium Chloride Carbon Dioxide Anion Gap BUN Creatinine Estim Creat Clear Calc Estimated GFR Random Glucose Fasting Glucose Estimat Average Glucose Hemoglobin A1c % Calcium Magnesium Total Bilirubin AST ALT Alkaline Phosphatase Total Protein Albumin Triglycerides Cholesterol LDL Cholesterol, Calc HDL Cholesterol Lipase Vitamin B12 Folate TSH Free T4 Beta HCG, Quant < 2 Urine Color Yellow Urine Appearance Clear Urine pH 5.5 Ur Specific [place] >= 1.030 H Urine Protein Trace Urine Glucose (UA) Negative Urine Ketones Negative Urine Blood Negative Urine Nitrite Negative Ur Leukocyte Esterase Negative Salicylates Urine Opiates Screen Urine Fentanyl Screen Acetaminophen Ur Barbiturates Screen Ur Phencyclidine Scrn Ur Amphetamines Screen U Benzodiazepines Scrn Urine Cocaine Screen U Marijuana (THC) Screen Ethyl Alcohol COVID-19 (THAO) Negative COVID-ZAO Begun See Note 03/23/23 03/23/23 03/23/23 15:16 19:04 19:04 WBC 9.9 RBC 4.70 Hgb 14.5 Hct 43.2 MCV 91.9 MCH 30.9 MCHC 33.6 RDW 12.6 Plt Count 334 MPV 9.3 L Immature Gran % (Auto) Neut % (Auto) Lymph % (Auto) [place] % (Auto) Eos % (Auto) Baso % (Auto) Lymph # (Auto) [place] # (Auto) Eos # (Auto) Baso # (Auto) Abs Immat Gran (auto) Absolute Neuts (auto) Absolute Nucleated RBC 0.000 Nucleated RBC % (auto) 0.0 PT INR Sodium 141 Potassium 4.4 Chloride 110 H Carbon Dioxide 23 Anion Gap 12 BUN 8 L Creatinine 0.78 Estim Creat Clear Calc 117.5 Estimated GFR > 60 Random Glucose 111 Fasting Glucose Estimat Average Glucose Hemoglobin A1c % Calcium 9.3 Magnesium 2.1 Total Bilirubin 0.5 AST 15 ALT 23 Alkaline Phosphatase 49 Total Protein 7.8 Albumin 4.0 Triglycerides Cholesterol LDL Cholesterol, Calc HDL Cholesterol Lipase Vitamin B12 Folate TSH Free T4 Beta HCG, Quant Urine Color Urine Appearance Urine pH Ur Specific [place] Urine Protein Urine Glucose (UA) Urine Ketones Urine Blood Urine Nitrite Ur Leukocyte Esterase Salicylates Urine Opiates Screen Not Detected Urine Fentanyl Screen Not Detected Acetaminophen Ur Barbiturates Screen Not Detected Ur Phencyclidine Scrn Not Detected Ur Amphetamines Screen Not Detected U Benzodiazepines Scrn Not Detected Urine Cocaine Screen Not Detected U Marijuana (THC) Screen Not Detected Ethyl Alcohol COVID-19 (THAO) COVID-19 Clin Com 03/23/23 03/23/23 03/23/23 19:04 23:03 23:03 WBC RBC Hgb Hct MCV MCH MCHC RDW Plt Count MPV Immature Gran % (Auto) Neut % (Auto) Lymph % (Auto) [place] % (Auto) Eos % (Auto) Baso % (Auto) Lymph # (Auto) [place] # (Auto) Eos # (Auto) Baso # (Auto) Abs Immat Gran (auto) Absolute Neuts (auto) Absolute Nucleated RBC Nucleated RBC % (auto) PT Cancelled 11.3 INR Cancelled 1.0 Sodium Potassium Chloride Carbon Dioxide Anion Gap BUN Creatinine Estim Creat Clear Calc Estimated GFR Random Glucose Fasting Glucose Estimat Average Glucose Hemoglobin A1c % Calcium Magnesium Total Bilirubin AST ALT Alkaline Phosphatase Total Protein Albumin Triglycerides Cholesterol LDL Cholesterol, Calc HDL Cholesterol Lipase Vitamin B12 Folate TSH Free T4 Beta HCG, Quant Urine Color Urine Appearance Urine pH Ur Specific [place] Urine Protein Urine Glucose (UA) Urine Ketones Urine Blood Urine Nitrite Ur Leukocyte Esterase Salicylates Urine Opiates Screen Urine Fentanyl Screen Acetaminophen < 17 Ur Barbiturates Screen Ur Phencyclidine Scrn Ur Amphetamines Screen U Benzodiazepines Scrn Urine Cocaine Screen U Marijuana (THC) Screen Ethyl Alcohol COVID-19 (THAO) COVID-19 Clin Com 03/23/23 03/25/23 03/25/23 23:03 08:30 08:30 WBC RBC Hgb Hct MCV MCH MCHC RDW Plt Count MPV Immature Gran % (Auto) Neut % (Auto) Lymph % (Auto) [place] % (Auto) Eos % (Auto) Baso % (Auto) Lymph # (Auto) [place] # (Auto) Eos # (Auto) Baso # (Auto) Abs Immat Gran (auto) Absolute Neuts (auto) Absolute Nucleated RBC Nucleated RBC % (auto) PT INR Sodium 141 Potassium 3.9 Chloride 105 Carbon Dioxide 28 Anion Gap 12 BUN 14 Creatinine 0.78 Estim Creat Clear Calc 121.4 Estimated GFR > 60 Random Glucose Fasting Glucose 79 Estimat Average Glucose 88 Hemoglobin A1c % 4.7 Calcium 9.1 Magnesium Total Bilirubin 0.5 AST 18 ALT 28 Alkaline Phosphatase 45 Total Protein 6.9 Albumin 3.6 Triglycerides 114 Cholesterol 127 LDL Cholesterol, Calc 61 HDL Cholesterol 44 Lipase Vitamin B12 Folate TSH 1.26 Free T4 1.07 Beta HCG, Quant Urine Color Urine Appearance Urine pH Ur Specific [place] Urine Protein Urine Glucose (UA) Urine Ketones Urine Blood Urine Nitrite Ur Leukocyte Esterase Salicylates Urine Opiates Screen Urine Fentanyl Screen Acetaminophen Ur Barbiturates Screen Ur Phencyclidine Scrn Ur Amphetamines Screen U Benzodiazepines Scrn Urine Cocaine Screen U Marijuana (THC) Screen Ethyl Alcohol < 10 COVID-19 (THAO) COVID-19 Clin Com 03/25/23 08:30 WBC RBC Hgb Hct MCV MCH MCHC RDW Plt Count MPV Immature Gran % (Auto) Neut % (Auto) Lymph % (Auto) [place] % (Auto) Eos % (Auto) Baso % (Auto) Lymph # (Auto) [place] # (Auto) Eos # (Auto) Baso # (Auto) Abs Immat Gran (auto) Absolute Neuts (auto) Absolute Nucleated RBC Nucleated RBC % (auto) PT INR Sodium Potassium Chloride Carbon Dioxide Anion Gap BUN Creatinine Estim Creat Clear Calc Estimated GFR Random Glucose Fasting Glucose Estimat Average Glucose Hemoglobin A1c % Calcium Magnesium Total Bilirubin AST ALT Alkaline Phosphatase Total Protein Albumin Triglycerides Cholesterol LDL Cholesterol, Calc HDL Cholesterol Lipase Vitamin B12 400 Folate 10.5 TSH Free T4 Beta HCG, Quant Urine Color Urine Appearance Urine pH Ur Specific [place] Urine Protein Urine Glucose (UA) Urine Ketones Urine Blood Urine Nitrite Ur Leukocyte Esterase Salicylates Urine Opiates Screen Urine Fentanyl Screen Acetaminophen Ur Barbiturates Screen Ur Phencyclidine Scrn Ur Amphetamines Screen U Benzodiazepines Scrn Urine Cocaine Screen U Marijuana (THC) Screen Ethyl Alcohol COVID-19 (THAO) COVID-19 Clin Com DS: Summary Hospital Course Hospital Course: Hospital course Patient was calm and organized, without SI on admission. She was started on a mood stabilizer per pt request, as she states she has done well on them in the past, reporting Bipolar II Dx. Patient remained friendly and cooperative on approach.? She reports she is doing better.? No SI at all.? Patient is future oriented talking about getting back to work.? Agrees to increase Tegretol which was started on admission.? Also agrees to increase trazodone and try clonidine at bedtime since she has trouble sleeping.Discussed history and how she has been stable for the past several years without any medication and it was only when life got overwhelming that she got dysregulated. Clonidine added for insomnia and anxiety 03/26 patient reports she is doing much better, feeling more optimistic and SI remains fully resolved.? Patient is hoping to discharge early next week.? If patient remains stable over the weekend will very likely proceed with discharge Patient remained in good behavioral and impulse control throughout her time in the unit; she was engaged in treatment, attending groups, getting along well with staff and peers. Patient remained stable and wanted discharge. She was not in imminent risk for harm to self or others and request for discharge honored. Time spent discussing smoking cessation with patient: 3 to 10 minutes Status at Discharge Functional status at discharge: independent ambulation Overall status at discharge: patient is back to baseline Time Spent with Patient Time attestation: Total time managing care of this patient today ____ minutes. 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; R/o Bipolar disorder Referrals: Mack Jacob MD [Physician] - 1 Week (PCP will call patient to schedule appt.) Discharge Medications: New clonidine HCl 0.1 mg Tablet 0.1 mg PO Q4H PRN (Reason: anxiety/insomnia) 30 Days Qty: 90 1RF Protocol: Hold for SBP< HOLD for SBP < : 90 carbamazepine 200 mg Tablet Extended Release 12 Hr 200 mg PO BID 30 Days Qty: 60 1RF trazodone 50 mg Tablet 150 mg PO BEDTIME 30 Days Qty: 90 1RF Continued albuterol sulfate 90 mcg/actuation HFA aerosol inhaler 2 puff inhalation Q4-6H PRN (Reason: shortness of breath or wheezing) Qty: 8.5 1RF Discharge Orders: Discharge Order (Routine); Ordered 03/29/23 Ordered By: Chet Ramon Diet: Regular diet Activity on Discharge: As tolerated Stand Alone Forms: Patient Portal Discharge page, Community Support Care Plan Goals: Maintain mood and safe behaviors Take medications as prescribed Practice coping skills Continue with outpatient providers and reach out to them as needed Health Concerns: Mood stability and behaviors Plan of Treatment: Follow up with your PCP, psychiatric provider and other outpatient providers regarding above concerns Take medications as prescribed Assessment: Risk assessment at time of discharge:? Patient was interviewed prior to discharge and found to be fully oriented and without any SI or HI. Patient has insight and demonstrates good judgment in terms of wanting to pursue treatment. Patient is not in imminent risk of harm to self or others and has a safety plan that includes presenting to the closest ER or calling 911 if feeling unsafe.? Patient has been observed closely by nursing and unit staff throughout admission; patient has not engaged in any behaviors that suggest dangerousness to self or others and has demonstrated appropriate behaviors and impulse control Discharge Date/Time: 03/29/23 11:57
[2023-03-29] MEDS: carBAMazepine ER 200 MG TAB.ER.12H PO (10:02)
[2023-03-29] MEDS: cloNIDine HCL 0.1 MG TABLET PO (10:05)
== END 2023-03-29 11:57 | disposition home or self-care (01) | DRG 885 ==
LOC: HO.ED 20:43 → HO.PADLT16 03-24 15:10
PROVIDERS: Registered Nurse Emergency; Admitting Provider Psychiatry & Neurology Psychiatry; Emergency Provider Student in an Organized Health Care Education/Training Program; Visit Provider Psychiatry & Neurology Psychiatry
DX: F33.2 Major depressive disorder, recurrent severe without psychotic features (principal); R45.851 Suicidal ideations; F41.9 Anxiety disorder, unspecified; Z20.822 Contact with and (suspected) exposure to COVID-19; Z79.899 Other long term (current) drug therapy
CPT/HCPCS: 36415; 80051; 80053; 80061; 80143; 80156; 80179; 80307; 81003; 82607; 82746; 83036; 83690; 83735; 84439; 84443; 84702; 85025; 85027; 85610; 87635; 93005; 99285; J2405; S9485

== ENCOUNTER → 2023-03-24 15:03 | Outpatient (BNV) | payer OTHER, MEDICAID, SELFPAY | PROVIDERS: Admitting Provider Psychiatry & Neurology Psychiatry; Emergency Provider Student in an Organized Health Care Education/Training Program; Visit Provider Psychiatry & Neurology Psychiatry | DX: F33.1 Major depressive disorder, recurrent, moderate (principal); F41.9 Anxiety disorder, unspecified | CPT/HCPCS: 90792; 99231; 99232; 99238 ==